=== PATIENT | female | born 1935 | race Two or more races ===

== ENCOUNTER 2018-01-30 20:46 | Inpatient (IN) | payer MEDICARE, MEDICAID ==
[~2018-01-30] VITALS: Ht 172.7 cm; Wt 56.3 kg
[2018-01-30 22:21] LABS: Urine Bacteria None Seen /hpf (None Seen); Urine WBC None Seen /hpf (0 - 5)
[2018-01-30 22:24] LABS: Calcium 8.5 mg/dL (8.5-10.1); Potassium 3.1 mmol/L (3.5-5.1); White Blood Cell 6.6 10^3/uL (4.4-10.8)
[2018-01-30 22:25] LABS: Eosinophils # (auto) 0.2 uL; Eosinophils % (auto) 3.6 % (0.0-7.0); Lymphocytes # (auto) 2.5 uL; Monocytes # (auto) 0.4 uL; Monocytes % (auto) 5.6 % (0.0-12.0); Neutrophils # (auto) 3.4 uL; Neutrophils % (auto) 51.8 % (37.0-80.0)
[2018-01-30 22:26] LABS: Basophils # (auto) 0.1 uL; Hematocrit 39.8 % (36.0-46.0); Hemoglobin 13.3 g/dL (12.2-16.2); Mean Corpuscular Hemoglobin 31.5 pg (28.0-32.0); Mean Corpuscular Hgb Conc. 33.6 g/dL (32.0-36.0); Mean Corpuscular Volume 93.9 fL (80.0-100.0); Platelet Count (auto) 172 10^3/uL (140-450); Red Blood Cells 4.23 10^6/uL (4.0-5.20); Red Cell Distribution Width 12.8 % (11.8-14.3)
[2018-01-30 22:27] LABS: Bilirubin, Total 0.4 mg/dL (0.2-1.0); Total Protein 6.3 g/dL (6.4-8.2)
[2018-01-30 22:53] LABS: Prothrombin Time 10.7 sec (9.27-12.13)
[2018-01-30 22:54] LABS: Partial Thromboplastin Time 24.3 sec (23.78-33.04)
[2018-01-30 23:10] LABS: Urine Blood Negative /uL (Negative)
[2018-01-30 23:11] LABS: Urine Amorphous Sediment Few /hpf
[2018-01-31] MEDS ORDERED: LORazepam 2MG/ML-1ML VIAL IV PRN (09:00)
[2018-01-31] MEDS ORDERED: DOCUSATE SOD 100 MG CAP PO PRN (09:00)
[2018-01-31] MEDS ORDERED: HYDROcodone-ACET 5/325MG TAB PO PRN (09:00)
[2018-01-31] MEDS ORDERED: MORPHINE SULF INJ 2 MG/ML SYRINGE 1ML IV PRN (09:00)
[2018-01-31] MEDS ORDERED: ONDANSETRON HCL 4 MG/2 ML VIAL IV PRN (09:00)
[2018-01-31] MEDS ORDERED: ACETAMINOPHEN 325 MG TAB PO PRN (09:00)
[2018-01-31] MEDS ORDERED: cloNIDine 0.1 mg/24hr 7 DAY PATCH TD ONE (09:00)
[2018-01-31] MEDS ORDERED: LACTULOSE 20Gm/30ML SOLN PO PRN (09:15)
[2018-01-31] MEDS ORDERED: POTASSIUM EFFERVESENT TAB 25 MEQ PO ONE (09:15)
[2018-01-31] MEDS ORDERED: FLEET MINERAL OIL ENEMA 133 ML PR ONE (09:15)
[2018-01-31] MEDS: METOPROLOL TARTRATE 25 MG TAB PO SCH ×2 (10:00→22:14)
[2018-01-31] MEDS: DEXTROMETHORPHAN PO SCH ×2 (10:00→22:00)
[2018-01-31] MEDS: DONEPEZIL PO SCH (10:00)
[2018-01-31] MEDS: MEMANTINE PO SCH (10:00)
[2018-01-31] MEDS: MULTIPLE VITAMIN TAB PO SCH (10:00)
[2018-01-31] MEDS ORDERED: QUINIDINE PO SCH (10:00)
[2018-01-31] MEDS: LEVETIRACETAM 500 MG/5ML ORAL SOLN UD PO SCH ×2 (10:00→22:26)
[2018-01-31] MEDS: FAMOTIDINE 20 MG TAB PO SCH ×2 (10:00→22:14)
[2018-01-31] MEDS: QUINIDINE PO SCH ×2 (10:00→22:00)
[2018-01-31] MEDS: ASPirin-EC 81 mg tab PO SCH (10:00)
[2018-01-31] MEDS ORDERED: DEXTROMETHORPHAN PO SCH (10:00)
[2018-01-31] MEDS: VALPROIC ACID 250 MG/5 ML ORAL SOLN PO SCH ×2 (10:00→22:13)
[2018-01-31] MEDS: Ensure Enlive Strawberry 8oz Bottle PO SCH ×3 (12:00→22:11)
[2018-01-31] MEDS: SODIUM CHLOR 0.9% PF (SALINE LOCK) 10ML VIAL/SYR IV SCH ×2 (14:19→22:10)
[2018-01-31] MEDS: ATORVASTATIN 20 MG TAB PO SCH (22:14)
[2018-01-31 23:12] VITALS: BP 130/78
[2018-01-31 23:30] VITALS: BP 130/78
[2018-02-01 05:00] VITALS: BP 163/76
[2018-02-01] MEDS: Ensure Enlive Strawberry 8oz Bottle PO SCH ×3 (06:15→18:00)
[2018-02-01] MEDS: SODIUM CHLOR 0.9% PF (SALINE LOCK) 10ML VIAL/SYR IV SCH ×2 (06:15→14:27)
[2018-02-01 07:11] LABS: Basophils # (auto) 0 uL; Basophils % (auto) 0.5 % (0.0-2.0); Eosinophils # (auto) 0.2 uL; Hemoglobin 13.3 g/dL (12.2-16.2); Lymphocytes % (auto) 29.4 % (10.0-50.0); Mean Corpuscular Hemoglobin 32.5 pg (28.0-32.0); Mean Corpuscular Hgb Conc. 34.3 g/dL (32.0-36.0); Monocytes # (auto) 0.4 uL; Monocytes % (auto) 5.4 % (0.0-12.0); Neutrophils # (auto) 4.1 uL; Neutrophils % (auto) 61.7 % (37.0-80.0); Platelet Count (auto) 177 10^3/uL (140-450); Red Cell Distribution Width 13.1 % (11.8-14.3); White Blood Cell 6.7 10^3/uL (4.4-10.8)
[2018-02-01 07:26] LABS: Albumin 2.9 g/dL (3.4-5.0); Calcium 9.2 mg/dL (8.5-10.1)
[2018-02-01 07:28] LABS: Bilirubin, Total 0.9 mg/dL (0.2-1.0); Total Protein 6.3 g/dL (6.4-8.2)
[2018-02-01 08:30] VITALS: BP 115/74
[2018-02-01] MEDS: QUINIDINE PO SCH ×2 (10:00→22:00)
[2018-02-01] MEDS: MEMANTINE PO SCH (10:00)
[2018-02-01] MEDS: DEXTROMETHORPHAN PO SCH ×2 (10:00→22:00)
[2018-02-01] MEDS: DONEPEZIL PO SCH (10:00)
[2018-02-01] MEDS: FAMOTIDINE 20 MG TAB PO SCH (10:18)
[2018-02-01] MEDS: ASPirin-EC 81 mg tab PO SCH (10:18)
[2018-02-01] MEDS: MULTIPLE VITAMIN TAB PO SCH (10:20)
[2018-02-01] MEDS: METOPROLOL TARTRATE 25 MG TAB PO SCH ×2 (10:20→22:00)
[2018-02-01] MEDS: LEVETIRACETAM 500 MG/5ML ORAL SOLN UD PO SCH (10:20)
[2018-02-01] MEDS: VALPROIC ACID 250 MG/5 ML ORAL SOLN PO SCH (10:21)
[2018-02-01 13:00] VITALS: BP 83/54
[2018-02-01 13:30] VITALS: BP 115/60
[2018-02-01] MEDS ORDERED: cefTAZidime 1 GM in SODIUM CHL 0.9% 50 ML IV ONE (14:30)
[2018-02-01 17:09] VITALS: BP 95/71
[2018-02-01] MEDS: LACTULOSE 20Gm/30ML SOLN PO SCH (17:48)
[2018-02-01] MEDS: cefTAZidime 1 GM in SODIUM CHL 0.9% 50 ML IV SCH (17:49)
[2018-02-01] MEDS ORDERED: POTASSIUM EFFERVESENT TAB 25 MEQ PO ONE (20:00)
[2018-02-01] MEDS: ATORVASTATIN 20 MG TAB PO SCH (22:00)
[2018-02-01 22:46] VITALS: BP 98/67
[2018-02-02] MEDS: SODIUM CHLOR 0.9% PF (SALINE LOCK) 10ML VIAL/SYR IV SCH ×4 (00:22→22:25)
[2018-02-02] MEDS: Ensure Enlive Strawberry 8oz Bottle PO SCH ×5 (00:23→22:25)
[2018-02-02] MEDS: VALPROIC ACID 250 MG/5 ML ORAL SOLN PO SCH ×3 (00:23→22:25)
[2018-02-02] MEDS: LEVETIRACETAM 500 MG/5ML ORAL SOLN UD PO SCH ×3 (00:24→22:24)
[2018-02-02] MEDS: LACTULOSE 20Gm/30ML SOLN PO SCH ×4 (00:25→18:24)
[2018-02-02] MEDS ORDERED: LEVE500T22 PO (02:15)
[2018-02-02] MEDS ORDERED: MEMA1CAP2 PO (02:15)
[2018-02-02] MEDS ORDERED: VALP250S16 PO (02:15)
[2018-02-02] MEDS ORDERED: ACET-1156 PO (02:15)
[2018-02-02] MEDS ORDERED: MOMLQ PO (02:15)
[2018-02-02] MEDS ORDERED: ASPI81CH43 PO (02:15)
[2018-02-02] MEDS ORDERED: CLON0.1D7 TD (02:15)
[2018-02-02] MEDS ORDERED: DEXT20CA PO (02:15)
[2018-02-02] MEDS ORDERED: SIMV20TA90 PO (02:15)
[2018-02-02] MEDS ORDERED: MET50T PO (02:15)
[2018-02-02] MEDS ORDERED: MULT-351 PO (02:15)
[2018-02-02] MEDS ORDERED: cefTAZidime 1 GM in SODIUM CHL 0.9% 50 ML IV SCH (03:00)
[2018-02-02 05:36] VITALS: BP 90/62
[2018-02-02] MEDS: cefTAZidime 1 GM in SODIUM CHL 0.9% 50 ML IV SCH ×2 (06:33→18:24)
[2018-02-02 08:00] VITALS: BP 100/58
[2018-02-02] MEDS: DONEPEZIL PO SCH (10:00)
[2018-02-02] MEDS: DEXTROMETHORPHAN PO SCH ×2 (10:00→22:00)
[2018-02-02] MEDS: MEMANTINE PO SCH (10:00)
[2018-02-02] MEDS: METOPROLOL TARTRATE 25 MG TAB PO SCH ×2 (10:00→22:00)
[2018-02-02] MEDS: QUINIDINE PO SCH ×2 (10:00→22:00)
[2018-02-02] MEDS: FAMOTIDINE 20 MG TAB PO SCH (11:06)
[2018-02-02] MEDS: ATORVASTATIN 20 MG TAB PO SCH (11:07)
[2018-02-02] MEDS: ASPirin-EC 81 mg tab PO SCH (11:18)
[2018-02-02] MEDS: MULTIPLE VITAMIN TAB PO SCH (11:18)
[2018-02-02 13:01] VITALS: BP 149/88
[2018-02-02 17:38] VITALS: BP 122/87
[2018-02-02 22:02] VITALS: BP 114/82
[2018-02-02] MEDS: MEMANTINE HCL 5 MG TAB PO SCH (22:24)
[2018-02-02] MEDS: DONEPEZIL HYDROCHLORIDE 5 MG TAB PO SCH (22:25)
[2018-02-03] MEDS: LACTULOSE 20Gm/30ML SOLN PO SCH ×5 (00:04→23:51)
[2018-02-03] MEDS: cefTAZidime 1 GM in SODIUM CHL 0.9% 50 ML IV SCH (05:17)
[2018-02-03 05:26] VITALS: BP 121/83
[2018-02-03] MEDS: SODIUM CHLOR 0.9% PF (SALINE LOCK) 10ML VIAL/SYR IV SCH ×3 (05:47→22:00)
[2018-02-03] MEDS: Ensure Enlive Strawberry 8oz Bottle PO SCH ×4 (06:00→22:00)
[2018-02-03 09:00] VITALS: BP 126/74
[2018-02-03] MEDS: DEXTROMETHORPHAN PO SCH ×2 (10:00→22:00)
[2018-02-03] MEDS: QUINIDINE PO SCH ×2 (10:00→22:00)
[2018-02-03] MEDS: VALPROIC ACID 250 MG/5 ML ORAL SOLN PO SCH ×2 (10:22→22:50)
[2018-02-03] MEDS: MEMANTINE HCL 5 MG TAB PO SCH ×2 (10:23→22:53)
[2018-02-03] MEDS: FAMOTIDINE 20 MG TAB PO SCH (10:23)
[2018-02-03] MEDS: ASPirin-EC 81 mg tab PO SCH (10:23)
[2018-02-03] MEDS: METOPROLOL TARTRATE 25 MG TAB PO SCH ×2 (10:24→22:52)
[2018-02-03] MEDS: MULTIPLE VITAMIN TAB PO SCH (10:24)
[2018-02-03] MEDS: LEVETIRACETAM 500 MG/5ML ORAL SOLN UD PO SCH ×2 (10:25→22:50)
[2018-02-03 13:00] VITALS: BP 119/96
[2018-02-03] MEDS: ERTAPENEM SOD INJ 1 GM in SODIUM CHL 0.9% 50 ML IV SCH (13:45)
[2018-02-03 17:00] VITALS: BP 111/61
[2018-02-03 22:00] VITALS: BP 151/68
[2018-02-03] MEDS: DONEPEZIL HYDROCHLORIDE 5 MG TAB PO SCH (22:50)
[2018-02-03] MEDS: ATORVASTATIN 20 MG TAB PO SCH (22:52)
[2018-02-04 05:29] VITALS: BP 129/86
[2018-02-04] MEDS: Ensure Enlive Strawberry 8oz Bottle PO SCH ×4 (06:00→22:29)
[2018-02-04] MEDS: LACTULOSE 20Gm/30ML SOLN PO SCH ×3 (06:13→18:03)
[2018-02-04] MEDS: SODIUM CHLOR 0.9% PF (SALINE LOCK) 10ML VIAL/SYR IV SCH ×3 (06:14→22:29)
[2018-02-04 08:54] VITALS: BP 131/66
[2018-02-04] MEDS: QUINIDINE PO SCH ×2 (10:00→22:00)
[2018-02-04] MEDS: DEXTROMETHORPHAN PO SCH ×2 (10:00→22:00)
[2018-02-04] MEDS: ERTAPENEM SOD INJ 1 GM in SODIUM CHL 0.9% 50 ML IV SCH (10:35)
[2018-02-04] MEDS: VALPROIC ACID 250 MG/5 ML ORAL SOLN PO SCH ×2 (10:35→22:29)
[2018-02-04] MEDS: LEVETIRACETAM 500 MG/5ML ORAL SOLN UD PO SCH ×2 (10:36→22:29)
[2018-02-04] MEDS: METOPROLOL TARTRATE 25 MG TAB PO SCH ×2 (10:37→22:00)
[2018-02-04] MEDS: MEMANTINE HCL 5 MG TAB PO SCH ×2 (10:37→22:28)
[2018-02-04] MEDS: MULTIPLE VITAMIN TAB PO SCH (10:37)
[2018-02-04] MEDS: ASPirin-EC 81 mg tab PO SCH (10:37)
[2018-02-04] MEDS: FAMOTIDINE 20 MG TAB PO SCH (10:38)
[2018-02-04 13:00] VITALS: BP 120/76
[2018-02-04 16:37] VITALS: BP 146/53
[2018-02-04] MEDS: ATORVASTATIN 20 MG TAB PO SCH (22:28)
[2018-02-04] MEDS: DONEPEZIL HYDROCHLORIDE 5 MG TAB PO SCH (22:28)
[2018-02-04 22:31] VITALS: BP 96/51
[2018-02-05] MEDS: LACTULOSE 20Gm/30ML SOLN PO SCH ×5 (00:06→23:46)
[2018-02-05 05:05] VITALS: BP 111/70
[2018-02-05] MEDS: Ensure Enlive Strawberry 8oz Bottle PO SCH ×4 (05:48→21:39)
[2018-02-05] MEDS: SODIUM CHLOR 0.9% PF (SALINE LOCK) 10ML VIAL/SYR IV SCH ×3 (05:48→21:39)
[2018-02-05 09:00] VITALS: BP 141/56
[2018-02-05] MEDS: DEXTROMETHORPHAN PO SCH ×2 (10:00→21:25)
[2018-02-05] MEDS: FAMOTIDINE 20 MG TAB PO SCH (10:00)
[2018-02-05] MEDS: QUINIDINE PO SCH ×2 (10:00→21:25)
[2018-02-05] MEDS: ASPirin-EC 81 mg tab PO SCH (11:05)
[2018-02-05] MEDS: MULTIPLE VITAMIN TAB PO SCH (11:06)
[2018-02-05] MEDS: MEMANTINE HCL 5 MG TAB PO SCH ×2 (11:06→21:24)
[2018-02-05] MEDS: LEVETIRACETAM 500 MG/5ML ORAL SOLN UD PO SCH ×2 (11:06→21:23)
[2018-02-05] MEDS: VALPROIC ACID 250 MG/5 ML ORAL SOLN PO SCH ×2 (11:07→21:23)
[2018-02-05] MEDS: METOPROLOL TARTRATE 25 MG TAB PO SCH ×2 (11:07→21:25)
[2018-02-05] MEDS: ERTAPENEM SOD INJ 1 GM in SODIUM CHL 0.9% 50 ML IV SCH (11:07)
[2018-02-05 13:00] VITALS: BP 105/58
[2018-02-05 17:00] VITALS: BP 102/57
[2018-02-05] MEDS: ATORVASTATIN 20 MG TAB PO SCH (21:24)
[2018-02-05] MEDS: DONEPEZIL HYDROCHLORIDE 5 MG TAB PO SCH (21:24)
[2018-02-05 21:38] VITALS: BP 128/59
[2018-02-06 05:09] VITALS: BP 100/45
[2018-02-06] MEDS: SODIUM CHLOR 0.9% PF (SALINE LOCK) 10ML VIAL/SYR IV SCH ×3 (05:49→23:14)
[2018-02-06] MEDS: LACTULOSE 20Gm/30ML SOLN PO SCH ×3 (05:49→18:01)
[2018-02-06] MEDS: Ensure Enlive Strawberry 8oz Bottle PO SCH ×4 (05:49→23:15)
[2018-02-06 08:00] VITALS: BP 100/62
[2018-02-06 09:00] VITALS: BP 100/62
[2018-02-06] MEDS: MEMANTINE HCL 5 MG TAB PO SCH ×2 (09:44→23:16)
[2018-02-06] MEDS: ASPirin-EC 81 mg tab PO SCH (09:44)
[2018-02-06] MEDS: FAMOTIDINE 20 MG TAB PO SCH (09:44)
[2018-02-06] MEDS: METOPROLOL TARTRATE 25 MG TAB PO SCH ×2 (09:44→23:16)
[2018-02-06] MEDS: DEXTROMETHORPHAN PO SCH ×2 (09:44→23:14)
[2018-02-06] MEDS: LEVETIRACETAM 500 MG/5ML ORAL SOLN UD PO SCH ×2 (09:44→23:15)
[2018-02-06] MEDS: VALPROIC ACID 250 MG/5 ML ORAL SOLN PO SCH ×2 (09:44→23:15)
[2018-02-06] MEDS: MULTIPLE VITAMIN TAB PO SCH (09:44)
[2018-02-06] MEDS: QUINIDINE PO SCH ×2 (09:44→23:14)
[2018-02-06] MEDS: ERTAPENEM SOD INJ 1 GM in SODIUM CHL 0.9% 50 ML IV SCH (09:57)
[2018-02-06] MEDS ORDERED: POTASSIUM CHL 20MEQ/100ML 100 ML IV ONE (10:30)
[2018-02-06 11:00] LABS: Basophils # (auto) 0 uL; Basophils % (auto) 0.5 % (0.0-2.0); Eosinophils # (auto) 0.3 uL; Eosinophils % (auto) 3.3 % (0.0-7.0); Hematocrit 40.7 % (36.0-46.0); Hemoglobin 13.7 g/dL (12.2-16.2); Lymphocytes # (auto) 2.2 uL; Lymphocytes % (auto) 24.4 % (10.0-50.0); Mean Corpuscular Hgb Conc. 33.7 g/dL (32.0-36.0); Mean Corpuscular Volume 95.1 fL (80.0-100.0); Monocytes # (auto) 0.5 uL; Neutrophils # (auto) 5.9 uL; Neutrophils % (auto) 65.8 % (37.0-80.0); Platelet Count (auto) 160 10^3/uL (140-450); Red Blood Cells 4.28 10^6/uL (4.0-5.20); Red Cell Distribution Width 12.9 % (11.8-14.3)
[2018-02-06 11:22] LABS: Albumin 2.7 g/dL (3.4-5.0); BUN/Creatinine Ratio 22.2; Bilirubin, Total 0.8 mg/dL (0.2-1.0); Calcium 8.8 mg/dL (8.5-10.1); Potassium 3.2 mmol/L (3.5-5.1); Total Protein 6.4 g/dL (6.4-8.2)
[2018-02-06 13:00] VITALS: BP 102/73
[2018-02-06 17:00] VITALS: BP 125/62
[2018-02-06 21:35] VITALS: BP 124/45
[2018-02-06] MEDS: DONEPEZIL HYDROCHLORIDE 5 MG TAB PO SCH (23:15)
[2018-02-06] MEDS: ATORVASTATIN 20 MG TAB PO SCH (23:16)
[2018-02-07 04:45] VITALS: BP 128/99
[2018-02-07] MEDS: LACTULOSE 20Gm/30ML SOLN PO SCH ×5 (05:48→21:38)
[2018-02-07] MEDS: Ensure Enlive Strawberry 8oz Bottle PO SCH ×4 (05:48→21:38)
[2018-02-07] MEDS: SODIUM CHLOR 0.9% PF (SALINE LOCK) 10ML VIAL/SYR IV SCH ×3 (05:48→21:37)
[2018-02-07 08:00] VITALS: BP 95/56
[2018-02-07 09:00] VITALS: BP 95/56
[2018-02-07] MEDS: DEXTROMETHORPHAN PO SCH ×2 (10:00→21:37)
[2018-02-07] MEDS: LEVETIRACETAM 500 MG/5ML ORAL SOLN UD PO SCH (10:00)
[2018-02-07] MEDS: ASPirin-EC 81 mg tab PO SCH (10:00)
[2018-02-07] MEDS: MEMANTINE HCL 5 MG TAB PO SCH (10:00)
[2018-02-07] MEDS: VALPROIC ACID 250 MG/5 ML ORAL SOLN PO SCH ×2 (10:00→21:37)
[2018-02-07] MEDS: METOPROLOL TARTRATE 25 MG TAB PO SCH ×2 (10:00→21:38)
[2018-02-07] MEDS: FAMOTIDINE 20 MG TAB PO SCH (10:00)
[2018-02-07] MEDS: QUINIDINE PO SCH ×2 (10:00→21:37)
[2018-02-07] MEDS: MULTIPLE VITAMIN TAB PO SCH (10:00)
[2018-02-07] MEDS: ERTAPENEM SOD INJ 1 GM in SODIUM CHL 0.9% 50 ML IV SCH (10:22)
[2018-02-07 11:09] LABS: Basophils # (auto) 0 uL; Basophils % (auto) 0.6 % (0.0-2.0); Eosinophils # (auto) 0.4 uL; Eosinophils % (auto) 5.6 % (0.0-7.0); Hematocrit 40.5 % (36.0-46.0); Hemoglobin 13.5 g/dL (12.2-16.2); Lymphocytes # (auto) 2.4 uL; Lymphocytes % (auto) 32.5 % (10.0-50.0); Mean Corpuscular Hgb Conc. 33.2 g/dL (32.0-36.0); Mean Corpuscular Volume 96.4 fL (80.0-100.0); Monocytes # (auto) 0.4 uL; Monocytes % (auto) 5.4 % (0.0-12.0); Neutrophils % (auto) 55.9 % (37.0-80.0); Nucleated Red Blood Cells % 0.1 %; Platelet Count (auto) 161 10^3/uL (140-450); Red Blood Cells 4.21 10^6/uL (4.0-5.20); Red Cell Distribution Width 12.9 % (11.8-14.3); White Blood Cell 7.3 10^3/uL (4.4-10.8)
[2018-02-07 11:21] LABS: Albumin 2.6 g/dL (3.4-5.0); BUN/Creatinine Ratio 26.4; Calcium 8.7 mg/dL (8.5-10.1)
[2018-02-07 11:23] LABS: Bilirubin, Total 0.5 mg/dL (0.2-1.0); Total Protein 6.2 g/dL (6.4-8.2)
[2018-02-07 11:29] LABS: Potassium 3.7 mmol/L (3.5-5.1)
[2018-02-07 12:37] VITALS: BP 120/48
[2018-02-07 17:01] VITALS: BP 113/63
[2018-02-07] MEDS: LEVETIRACETAM INJ 1,000 MG in D5W 5% 100 ML IV SCH (21:37)
[2018-02-07] MEDS: ATORVASTATIN 20 MG TAB PO SCH (21:38)
[2018-02-07 21:51] VITALS: BP 114/96
[2018-02-08 04:42] VITALS: BP 148/85
[2018-02-08] MEDS: SODIUM CHLOR 0.9% PF (SALINE LOCK) 10ML VIAL/SYR IV SCH ×2 (06:59→14:00)
[2018-02-08] MEDS: LACTULOSE 20Gm/30ML SOLN PO SCH ×2 (06:59→11:05)
[2018-02-08] MEDS: Ensure Enlive Strawberry 8oz Bottle PO SCH ×2 (06:59→11:05)
[2018-02-08 09:00] VITALS: BP 138/83
[2018-02-08] MEDS: VALPROIC ACID 250 MG/5 ML ORAL SOLN PO SCH (10:00)
[2018-02-08] MEDS: ASPirin-EC 81 mg tab PO SCH (10:00)
[2018-02-08] MEDS: FAMOTIDINE 20 MG TAB PO SCH (10:00)
[2018-02-08] MEDS: METOPROLOL TARTRATE 25 MG TAB PO SCH (10:00)
[2018-02-08] MEDS: DEXTROMETHORPHAN PO SCH (10:00)
[2018-02-08] MEDS: MULTIPLE VITAMIN TAB PO SCH (10:00)
[2018-02-08] MEDS: QUINIDINE PO SCH (10:00)
[2018-02-08] MEDS: LEVETIRACETAM INJ 1,000 MG in D5W 5% 100 ML IV SCH (10:48)
[2018-02-08] MEDS: ERTAPENEM SOD INJ 1 GM in SODIUM CHL 0.9% 50 ML IV SCH (11:00)
[2018-02-08 12:50] VITALS: BP 134/98
[2018-02-08 13:00] VITALS: BP 134/98
[2018-02-08 14:05] LABS: Basophils # (auto) 0 uL; Basophils % (auto) 0.8 % (0.0-2.0); Eosinophils # (auto) 0.4 uL; Eosinophils % (auto) 6.3 % (0.0-7.0); Hematocrit 38.4 % (36.0-46.0); Hemoglobin 13.1 g/dL (12.2-16.2); Lymphocytes % (auto) 33.2 % (10.0-50.0); Mean Corpuscular Hemoglobin 32.5 pg (28.0-32.0); Mean Corpuscular Volume 95.5 fL (80.0-100.0); Monocytes # (auto) 0.3 uL; Monocytes % (auto) 4.6 % (0.0-12.0); Neutrophils # (auto) 3.3 uL; Neutrophils % (auto) 55.1 % (37.0-80.0); Platelet Count (auto) 175 10^3/uL (140-450); Red Blood Cells 4.02 10^6/uL (4.0-5.20); Red Cell Distribution Width 12.8 % (11.8-14.3); White Blood Cell 6.1 10^3/uL (4.4-10.8)
[2018-02-08 14:14] LABS: Calcium 8.9 mg/dL (8.5-10.1); Potassium 3.9 mmol/L (3.5-5.1)
[2018-02-08 14:18] LABS: Albumin 2.7 g/dL (3.4-5.0); BUN/Creatinine Ratio 21.8
[2018-02-08 14:24] LABS: Bilirubin, Total 0.4 mg/dL (0.2-1.0); Total Protein 6.1 g/dL (6.4-8.2)
== END 2018-02-08 13:48 | disposition hospice, home (50) | DRG 689 ==
LOC: EDBD 20:46 → EDUNIT# 20:46 → EDBD 20:52 → ER 20:52 → OVERFLOW 20:53 → CENTRAL 01-31 20:20
PROVIDERS: ADMIT Internal Medicine; ATTEND Internal Medicine
DX: N39.0 Urinary tract infection, site not specified (principal); G93.41 Metabolic encephalopathy; E44.0 Moderate protein-calorie malnutrition; E87.0 Hyperosmolality and hypernatremia; Z68.1 Body mass index [BMI] 19.9 or less, adult; N93.9 Abnormal uterine and vaginal bleeding, unspecified; K56.41 Fecal impaction; E87.6 Hypokalemia; E78.5 Hyperlipidemia, unspecified; I10 Essential (primary) hypertension; F02.80 Dementia in other diseases classified elsewhere, unspecified severity, without behavioral disturbance, psychotic disturbance, mood disturbance, and anxiety; D25.9 Leiomyoma of uterus, unspecified; Z66 Do not resuscitate; G30.9 Alzheimer's disease, unspecified; R13.10 Dysphagia, unspecified; G40.909 Epilepsy, unspecified, not intractable, without status epilepticus; F17.200 Nicotine dependence, unspecified, uncomplicated; E78.00 Pure hypercholesterolemia, unspecified; Z79.82 Long term (current) use of aspirin; Z79.899 Other long term (current) drug therapy; Z86.73 Personal history of transient ischemic attack (TIA), and cerebral infarction without residual deficits; Z88.0 Allergy status to penicillin; Z88.1 Allergy status to other antibiotic agents; Z91.012 Allergy to eggs; Z88.8 Allergy status to other drugs, medicaments and biological substances; Z87.440 Personal history of urinary (tract) infections; Z95.0 Presence of cardiac pacemaker
CPT/HCPCS: 36415; 74176; 76775; 76856; 80053; 81001; 85025; 85610; 85730; 87081; 87086; 87088; 87186; 92610; 93005; 95819; 97110; 97530; J1335; J3480; J7060